=== PATIENT | female | born 1995 | race Caucasian/White ===

== ENCOUNTER 2019-02-19 16:46 | Observation (INO) | payer OTHER ==
[~2019-02-19] VITALS: Ht 165.1 cm; Wt 77.1 kg
[~2019-02-19 16:46] MED LIST: PREN-385 PO
[2019-02-19 18:05] VITALS: BP 113/62
== END 2019-02-19 19:47 | disposition home or self-care (01) ==
LOC: MLD 16:46 → UNDOADMIN 16:46 → MLD 16:52 → UNDODISIN 19:55 → MLD 19:55 → UNDOADMOB 19:55 → EDSTATUS 02-22 13:05
PROVIDERS: ADMIT Obstetrics & Gynecology; ATTEND Obstetrics & Gynecology
DX: O26.893 Other specified pregnancy related conditions, third trimester (principal); R10.9 Unspecified abdominal pain; Z3A.38 38 weeks gestation of pregnancy
CPT/HCPCS: 59025; 76805; G0378; Q0092

== ENCOUNTER 2019-02-22 15:27 | Observation (INO) | payer OTHER ==
[~2019-02-22] VITALS: Ht 165.1 cm; Wt 77.1 kg
== END 2019-02-22 17:20 | disposition home or self-care (01) ==
LOC: MLD 15:27
PROVIDERS: ADMIT Obstetrics & Gynecology; ATTEND Obstetrics & Gynecology
DX: O41.03X0 Oligohydramnios, third trimester, not applicable or unspecified (principal); O32.1XX0 Maternal care for breech presentation, not applicable or unspecified; Z3A.38 38 weeks gestation of pregnancy
CPT/HCPCS: 76815; G0378; Q0092; 59025; 81000

== ENCOUNTER 2019-02-23 06:40 | Inpatient (IN) | payer OTHER ==
[~2019-02-23] VITALS: Ht 165.1 cm; Wt 79.4 kg
[2019-02-23] MEDS ORDERED: METHYLERGONOVINE 0.2 MG/ML AMP IM PRN (07:05)
[2019-02-23] MEDS ORDERED: CITRIC ACID/SODIUM CITRATE 30 ML UDC PO SCH (07:05)
[2019-02-23] MEDS ORDERED: TERBUTALINE 1 MG/ML VIAL SUBQ SCH (07:10)
[2019-02-23] MEDS ORDERED: TERBUTALINE 1 MG/ML VIAL SUBQ ONE ×2 (07:21→13:29)
[2019-02-23 07:50] LABS: BASOPHILS % (AUTO) 0.2 % (0.0-2.0); EOSINOPHILS % (AUTO) 0.5 % (0.0-4.0); HEMATOCRIT 40.6 % (36-48); HEMOGLOBIN 13.7 g/dL (12.0-16.0); LYMPHOCYTES # (AUTO) 1.5 K/uL (2.5-16.5); LYMPHOCYTES % (AUTO) 15.3 % (20.5-51.1); MEAN CORPUSCULAR HEMOGLOBIN 31 pg (27-31); MEAN CORPUSCULAR HGB CONC 34 g/dL (33-37); MONOCYTES # (AUTO) 0.6 K/uL (0.8-1.0); MONOCYTES % (AUTO) 6.4 % (1.7-9.3); NEUTROPHILS # (AUTO) 7.6 K/uL (1.8-7.7); NEUTROPHILS % (AUTO) 77.6 % (42.2-75.2); PLATELET COUNT (AUTO) 151 K/uL (140-450); RED BLOOD CELL COUNT(AUTO) 4.41 MIL/uL (4.20-5.40); RED CELL DISTRIBUTION WIDTH 13.5 % (11.6-13.7); WHITE BLOOD COUNT (AUTO) 9.8 K/uL (4.8-10.8)
[2019-02-23] MEDS: LACTATED RINGERS 1,000 ML IV SCH ×2 (07:58→11:28)
--- NOTE | 2019-02-23 08:16 | NUR ---
PATIENT HAS BEEN SCREENED AND CATEGORIZED LOW NUTRITION RISK. PATIENT WILL BE SEEN WITHIN 7 DAYS OF ADMISSION. 03/01/[address]
[2019-02-23] MEDS ORDERED: LIDOCAINE 1% 500 MG/50 ML VIAL ONE (08:46)
[2019-02-23 09:03] LABS: APPEARANCE,URINE CLEAR (CLEAR); BILIRUBIN,URINE NEGATIVE (NEGATIVE); BLOOD, URINE NEGATIVE (NEGATIVE); COLOR,URINE YELLOW (YELLOW); LEUKOCYTE ESTERASE ,URINE NEGATIVE (NEGATIVE); NITRITE, URINE NEGATIVE (NEGATIVE); PH,URINE 6.5 (5.0-9.0); UGLUCOSE NEGATIVE (NEGATIVE)
[2019-02-23] MEDS ORDERED: OXYTOCIN 10 UNITS/ML VIAL ONE (09:17)
[2019-02-23] MEDS ORDERED: OXYTOCIN 20 UNITS/LR PREMIX 1,000 ML IV ONE (09:17)
[2019-02-23] MEDS ORDERED: NALBUPHINE 10 MG/ML AMP IVP SCH (09:20)
[2019-02-23] MEDS ORDERED: NALBUPHINE 10 MG/ML AMP ONE ×2 (09:25→11:53)
[2019-02-23] MEDS ORDERED: AMPICILLIN 2,000 MG in NACL 0.9% 100 ML IV ONE (09:30)
[2019-02-23] MEDS ORDERED: AMPICILLIN 2,000 MG VIAL ONE (09:37)
[2019-02-23] MEDS ORDERED: NALOXONE 0.4 MG/ML VIAL ONE (10:36)
[2019-02-23] MEDS ORDERED: NALBUPHINE 10 MG/ML AMP IVP ONE (11:40)
[2019-02-23] MEDS ORDERED: OXYTOCIN 20 UNITS in LACTATED RINGERS 1,000 ML IV SCH (15:12)
[2019-02-23] MEDS ORDERED: ACETAMINOPHEN 325 MG TAB PO PRN (15:15)
[2019-02-23] MEDS ORDERED: IBUPROFEN 600 MG TAB PO PRN (15:15)
[2019-02-23] MEDS ORDERED: BENZOCAINE/MENTHOL 20%-0.5% 60 GM CAN TP PRN (15:15)
[2019-02-23] MEDS ORDERED: MEASLES, MUMPS, AND RUBELLA 1 VIAL SQVAC PRN (15:15)
[2019-02-23] MEDS ORDERED: DOCUSATE SODIUM 100 MG GELCAP PO PRN (15:15)
[2019-02-24 08:23] LABS: BASOPHILS # (AUTO) 0.1 K/uL (0.00-0.22); BASOPHILS % (AUTO) 0.3 % (0.0-2.0); EOSINOPHILS % (AUTO) 0.2 % (0.0-4.0); HEMATOCRIT 38.8 % (36-48); LYMPHOCYTES # (AUTO) 1.2 K/uL (2.5-16.5); LYMPHOCYTES % (AUTO) 6.7 % (20.5-51.1); MEAN CORPUSCULAR HEMOGLOBIN 31 pg (27-31); MEAN CORPUSCULAR HGB CONC 34 g/dL (33-37); MEAN CORPUSCULAR VOLUME 91.4 fL (80-94); MONOCYTES % (AUTO) 5.7 % (1.7-9.3); NEUTROPHILS # (AUTO) 15.6 K/uL (1.8-7.7); NEUTROPHILS % (AUTO) 87.1 % (42.2-75.2); PLATELET COUNT (AUTO) 178 K/uL (140-450); RED BLOOD CELL COUNT(AUTO) 4.24 MIL/uL (4.20-5.40); RED CELL DISTRIBUTION WIDTH 13.5 % (11.6-13.7)
[2019-02-25] MEDS ORDERED: FERR325E14 PO (13:50)
[2019-02-25] MEDS ORDERED: ACET325C7 PO (13:52)
[2019-03-02 08:20] LABS: RAPID PLASMA REAGIN NON-REACTIVE (Non Reactiv)
== END 2019-02-25 15:35 | disposition home or self-care (01) | DRG 560 ==
LOC: MLD 06:40 → MFCC 15:30
PROVIDERS: ADMIT Obstetrics & Gynecology; ATTEND Obstetrics & Gynecology
PROC: 10E0XZZ Delivery of Products of Conception, External Approach (ICD-10-PCS; principal; 2019-02-23)
PROC: 0W8NXZZ Division of Female Perineum, External Approach (ICD-10-PCS; 2019-02-23)
PROC: 0HQ9XZZ Repair Perineum Skin, External Approach (ICD-10-PCS; 2019-02-23)
PROC: 3E0234Z Introduction of Serum, Toxoid and Vaccine into Muscle, Percutaneous Approach (ICD-10-PCS; 2019-02-23)
DX: O32.1XX0 Maternal care for breech presentation, not applicable or unspecified (principal); O62.2 Other uterine inertia; O70.0 First degree perineal laceration during delivery; Z3A.39 39 weeks gestation of pregnancy; Z37.0 Single live birth; Z23 Encounter for immunization
CPT/HCPCS: 36415; 51702; 81003; 85025; 86592; 86886; 86900; 86901; 90715; J0290; J0690; J2001; J2300; J2310; J2590; J3105; J7060; J7120